=== PATIENT | female | born 1955 | race Caucasian/White ===

== ENCOUNTER 2016-07-31 10:00 | Day surgery (SDC) | payer OTHER ==
[~2016-07-31] VITALS: Ht 160 cm; Wt 107.0 kg
[~2016-07-31 10:00] MED LIST: ADDERALL XR 1515 MG PO; ASPIR-LOW81 MG PO; ATORVASTATIN CA40 MG PO; CALCIUM + VITA1 EAC2 PO; CALCIUM 500 +1 EACH PO; CALTRATE GUMMY1 EACH PO; CARVEDILOL3.125 MG PO; CLONAZEPAM0.5 MG PO; COUMADIN2.5 MG PO; DAILY MULTIPLE1 EACH PO; DILAUDID2 MG PO; ESCITALOPRAM OX20 MG PO; FOLIC ACID1 MG PO; GABAPENTIN300 MG PO; LIPITOR80 MG PO; LISINOPRIL30 MG PO; LO-DOSE ASPIRIN81 M1 PO; MAGNESIUM400 M1 PO; MELOXICAM15 MG PO; MELOXICAM7.5 MG PO; MOBIC15 MG PO; NEURONTIN100 MG PO; NEURONTIN300 MG PO; OMEPRAZOLE20 MG PO; OXYCODONE-ACET1 EACH PO; PERCOCET 5/31 TABLET PO; SENNA S TABLET1 EACH PO; TIZANIDINE HCL4 M1 PO; ULTRAM50 MG PO; VISTARIL25 MG PO; WOMEN'S DAILY1 EAC4 PO; ZINC50 M2 PO
[2016-07-31 10:26] VITALS: BP 130/66
[2016-07-31] MEDS ORDERED: PERCOCET 5/31 TABLET PO (13:07)
[2016-07-31 14:18] VITALS: BP 140/67
[2016-07-31 15:13] VITALS: BP 132/69
== END 2016-07-31 15:23 | disposition home or self-care (01) ==
LOC: SDC 10:00
DX: D17.21 Benign lipomatous neoplasm of skin and subcutaneous tissue of right arm (principal); D17.1 Benign lipomatous neoplasm of skin and subcutaneous tissue of trunk; F41.8 Other specified anxiety disorders; I10 Essential (primary) hypertension; K21.9 Gastro-esophageal reflux disease without esophagitis; Z68.41 Body mass index [BMI] 40.0-44.9, adult; E66.01 Morbid (severe) obesity due to excess calories; M79.7 Fibromyalgia; G47.30 Sleep apnea, unspecified; Z79.82 Long term (current) use of aspirin; Z87.891 Personal history of nicotine dependence; Z79.891 Long term (current) use of opiate analgesic
CPT/HCPCS: 88304; J0330; J0461; J0690; J2250; J2405; J3010